=== PATIENT | male | born 1945 | race Caucasian/White ===

== ENCOUNTER 2017-07-02 06:31 | Inpatient (IN) | payer OTHER ==
[~2017-07-02] VITALS: Ht 177.8 cm; Wt 85.2 kg
[~2017-07-02 06:31] MED LIST: ALTACE10 MG PO; ASPIRIN325 MG PO; Coumadin,Jantoven PO; Glucophage PO; JANUVIA100 MG PO; KEFLEX500 MG PO; METFORMIN HCL500 MG PO; METOPROLOL TART25 MG PO; NOVOLOG MI100 UNIT/M SC; PLAVIX75 MG PO; ZANTAC150 MG PO; ZOCOR20 MG PO
[2017-07-02 07:25] LABS: BASOPHIL (%) 0.4 % (0-1); EOSINOPHIL (%) 1.2 % (0-5); EOSINOPHIL COUNT 0.1 K/uL (0-0.3); HEMATOCRIT 46.1 % (38.0-50.0); HEMOGLOBIN 14.9 G/DL (12.5-16.6); IMMATURE GRANULOCYTE (%) 0.2 % (0.0-0.7); LYMPHOCYTE (%) 27.3 % (15-42); LYMPHOCYTE COUNT 2.2 K/uL (1.0-2.8); MCH 27.6 PG (29.0-34.0); MCHC 32.3 G/DL (30.0-36.0); MCV 85.5 FL (86-99); MONOCYTE (%) 7.4 % (3-12); MONOCYTE COUNT 0.6 K/uL (0-0.8); NEUTROPHIL (%) 63.5 % (45-76); NEUTROPHIL COUNT 5.1 K/uL (1.8-6.4); PLATELET COUNT 159 K/uL (156-360); RBC DIS.WIDTH-SD 43.4 % (39-53); RED BLOOD COUNT 5.39 M/uL (4.00-5.50)
[2017-07-02 07:32] LABS: PTT 27.1 SEC (25-37)
[2017-07-02 08:02] LABS: Estimated Average Glucose 192 mg/dL (70-123); HEMOGLOBIN A1c (GLYCOHEMOGLOB) 8.3 % HGB (Below 5.7)
[2017-07-02 08:08] LABS: CHLORIDE 105 MEQ/L (99-109); CREATININE 1.2 MG/DL (0.6-1.3); GFR ESTIMATE (CALCULATED) > 59 mL/min/ (58.99-99999); GLUCOSE 162 mg/dL (70-99); HDL CHOLESTEROL 47 MG/DL (Desirable>=40); LDL CHOLESTEROL 61 mg/dL (Desirable<100); NON-HDL CHOLESTEROL 83 mg/dL (Desirable<160); POTASSIUM 4.1 MEQ/L (3.7-5.4); SODIUM 141 MEQ/L (136-147); TOTAL CHOLESTEROL 130 mg/dL (Desirable<200); TRIGLYCERIDES 111 MG/DL (Normal: <150); UREA NITROGEN (BUN) 16 mg/dL (9-23)
[2017-07-02 09:59] LABS: TROP-I INTERPRETATION NEGATIVE; TROPONIN-I < 0.01 ng/mL (0.0-0.30)
[2017-07-02] MEDS ORDERED: TOPROL XL25 MG PO (12:11)
[2017-07-02] MEDS ORDERED: LO-DOSE ASPIRIN81 M1 PO (12:11)
[2017-07-02] MEDS ORDERED: ADVIL200 MG PO (12:13)
[2017-07-02] MEDS ORDERED: GLUCOPHAGE500 MG PO (12:13)
[2017-07-02 15:27] LABS: TROP-I INTERPRETATION NEGATIVE; TROPONIN-I < 0.01 ng/mL (0.0-0.30)
[2017-07-02 16:13] VITALS: BP 120/69
[2017-07-02 19:05] VITALS: BP 92/50
[2017-07-02 21:18] LABS: TROP-I INTERPRETATION NEGATIVE; TROPONIN-I < 0.01 ng/mL (0.0-0.30)
[2017-07-02 23:55] VITALS: BP 121/71
[2017-07-03 03:46] VITALS: BP 118/69
[2017-07-03 08:00] VITALS: BP 143/80
[2017-07-03 11:25] VITALS: BP 176/90
[2017-07-03] MEDS ORDERED: NOVOLOG MI100 UNIT/3 SC ×3 (11:39→11:42)
[2017-07-03 16:45] VITALS: BP 132/71
[2017-07-03] MEDS ORDERED: ATORVASTATIN CA40 MG PO (17:37)
== END 2017-07-03 19:55 | disposition home or self-care (01) | DRG 66 ==
LOC: EME 06:31 → EDOF 08:45 → 5SOUTH 08:45 → ENRESERV 08:46 → 5SOUTH 15:33
PROVIDERS: Emergency Medicine; Internal Medicine
DX: I63.9 Cerebral infarction, unspecified (principal); R47.01 Aphasia; R29.703 NIHSS score 3; E11.9 Type 2 diabetes mellitus without complications; I10 Essential (primary) hypertension; K21.9 Gastro-esophageal reflux disease without esophagitis; Z79.4 Long term (current) use of insulin; Z79.82 Long term (current) use of aspirin; Z86.73 Personal history of transient ischemic attack (TIA), and cerebral infarction without residual deficits; E66.9 Obesity, unspecified; Z68.26 Body mass index [BMI] 26.0-26.9, adult
CPT/HCPCS: 70450; 70496; 70498; 70551; 80048; 80061; 82948; 83036; 84484; 85025; 85610; 85730; 92523 GN; 92610 GN; 93005; 93306; J1650; J1815; J7030